=== PATIENT | male | born 1960 | race Caucasian/White ===

== ENCOUNTER → 2017-03-18 | Outpatient (CLI) | payer BC ==
[~2017-03-18] MED LIST: ANUSOL-HC CREAM30 GM RECTAL; ATIVAN0.5 MG ORAL; DORYX200 MG PO; FISH OIL500 MG PO; FLAX OIL1000 MG PO; FLAX SEED OIL1000 MG PO; FLOVENT2 PUFF2 INH; IBUPROFEN200 M2 ORAL; IRON325 M1 PO; IRON325 M2 PO; MAGNESIUM500 MG PO; MULTIVITAMINS1 EAC2 ORAL; VITAMIN B COMP1 EAC5 PO; VITAMIN C500 M1 ORAL; VITAMIN D250000 UNI1 ORAL; ZINC CHELATED50 MG ORAL
--- NOTE | 2017-03-18 12:44 | GI Progress Note ---
Assessment/Plan Problems: (1) Eosinophilic esophagitis ICD Codes: K20.0 - Eosinophilic esophagitis SNOMED: 353135884 (2) Elevated LFTs ICD Codes: R79.89 - Elevated LFTs SNOMED: 716461166 (3) Internal hemorrhoids ICD Codes: K64.8 - Internal hemorrhoids SNOMED: 69716560 (4) Iron deficiency anemia ICD Codes: D50.9 - Iron deficiency anemia SNOMED: 48581345 Status: stable Status Narrative Seen with Dr. Troncoso. Assessment/Plan No autoimmune hepatitis noted based on labs reviewed with Dr. Troncoso in 2013. ordered ceruloplasmin level to rule out Elvin's Disease ordered SMA, MAGALIE ordered abdominal U/S dc motrin/advil RTC x 1 month Subjective Subjective cough >> abx given red spots in the extremities here for abnormal LFTs hemorrhoid banding done fatigue Objective BP 144/92 P 58 General Appearance: no apparent distress, alert Cardiovascular: normal rate Respiratory/Chest: normal breath sounds, no respiratory distress Abdominal Exam: normal bowel sounds, non tender, soft Extremities: normal range of motion Genia Hamilton N.P. March 18, 2017 12:44
[2017-03-18 14:45] VITALS: BP 144/92
== END | disposition home or self-care (01) ==
LOC: PAN 10:50
DX: K20.0 Eosinophilic esophagitis (principal); R79.89 Other specified abnormal findings of blood chemistry; K64.8 Other hemorrhoids; D50.9 Iron deficiency anemia, unspecified
CPT/HCPCS: 99211

== ENCOUNTER → 2020-09-07 | Day surgery (SDC) | payer OTHER ==
[~2020-09-07] VITALS: Ht 180.3 cm; Wt 83.0 kg
[2020-09-07] VITALS (9 sets, daily range): BP systolic 124–153; BP diastolic 56–83
[~2020-09-07] MED LIST changes: +AMLODIPINE BESY10 MG ORAL; +ATIVAN1 MG ORAL; +LR 1000ml 1,000 ML IVLG SCH; +LR 1000ml ONE; +Midazolam 2mg/2ml Inj ONE; +SUTENT37.5 MG PO; +fentaNYL 100 mcg/2 mL IV ONE; +fentaNYL 100 mcg/2 mL IV PRN
--- NOTE | 2020-09-07 10:25 | Anethesia Preoperative Eval ---
Anesthesia Pre-op PMH/ROS General Date of Evaluation: Sep 07, 2020 Time of Evaluation: 10:22 Anesthesiologist: Helder ASA Score: ASA 2 Mallampati Score Class I : Soft palate, uvula, fauces, pillars visible Class II: Soft palate, uvula, fauces visible Class III: Soft palate, base of uvula visible Class IV: Only hard plate visible Mallampati Classification: Class II Surgeon: Cynthia Diagnosis: ABdominal pain Surgical Procedure: EGD Colonoscopy Anesthesia History: none Family History: no anesthesia problems Allergies: Coded Allergies: CODEINE (Verified Allergy, Intermediate, Rash, 08/26/14) swollen, vomiting Uncoded Allergies: hay fever (Adverse Reaction, Mild, 07/26/14) Medications: see eMAR Patient NPO?: Yes Past Medical History Cardiovascular: Denies: HTN, CAD, ID, valve dz, arrhythmia, other Pulmonary: Denies: asthma, COPD, CARLIE, other Gastrointestinal/Genitourinary: Reports: GERD, other - colitis; Denies: CRI, ESRD Neurologic/Psychiatric: Denies: dementia, CVA, depression/anxiety, TIA, other Endocrine: Denies: DM, hypothyroidism, steroids, other HEENT: Denies: cataract (L), cataract (R), glaucoma, [place]OP[place] (L), [place] (R), other Hematology/Immune: Reports: anemia - mild; Denies: DVT, bleeding disorder, other Musculoskeletal/Integumentary: Denies: OA, RA, DJD, DDD, edema, other PMH Narrative: as above PSxH Narrative: see H&P Anesthesia Pre-op Phys. Exam Physician Exam Last Vital Signs Date Time Temp Pulse Resp B/P (MAP) Pulse Ox O2 Delivery O2 Flow Rate FiO2 09/07/20 10:14 97.9 60 18 143/81 99 Room Air Constitutional: NAD Neurologic: CN 2-12 intact Cardiovascular: RRR, no M/R/G Respiratory: CTA Gastrointestinal: S/NT/ND Airway Exam Mallampati Score: Class II MO: full Neck: flexible ROM: full Teeth: intact Dentures: no upper, no lower Anesthesia Pre-op A/P Labs see chart Risk Assessment & Plan Assessment: ASA 2 Plan: MAC Status Change Before Surgery: No Adam Pendleton MD Sep 07, 2020 10:25
--- NOTE | 2020-09-07 10:50 | Pre-Procedure Note/Attestation ---
Pre-Procedure Note/Attestation Complete Prior to Procedure Planned Procedure: not applicable Procedure Narrative: esophagogastroduodenoscopy colon Indications for Procedure Pre-Operative Diagnosis: nausea, anemia, hematochezia Attestation I attest that I discussed the nature of the procedure; its benefits; risks and complications; and alternatives (and the risks and benefits of such alte rnatives), prior to the procedure, with the patient (or the patient's legal signs sales representative). I attest that, if there was a reasonable possibility of needing a blood transfusion, the patient (or the patient's legal signs sales representative) was given the [facility] standardized written summary, pursuant to the Gael Riley Blood Safety Act ([place] Health and Safety Code # 1645, as amended). I attest that I re-evaluated the patient just prior to the surgery and that there has been no change in the patient's H&P, except as documented below: Jeremie Forbes MD Sep 07, 2020 10:49
--- NOTE | 2020-09-07 10:50 | Short Stay Surgery H&P ---
History of Present Illness History of Present Illness Chief Complaint see H&P HPI Adarsh Chandra is a 60 year old male who was admitted on for Blood In Stool Patient History Allergies: Coded Allergies: CODEINE (Verified Allergy, Intermediate, Rash, 08/26/14) swollen, vomiting Uncoded Allergies: hay fever (Adverse Reaction, Mild, 07/26/14) Medication History Scheduled Amlodipine Besylate* (Amlodipine Besylate*), 10 MG ORAL DAILY, (Reported) Ferrous Sulfate (Iron), 325 MG PO DAILY, (Reported) Lorazepam* (Ativan*), 1 MG ORAL BEDTIME, (Reported) Sunitinib Malate (Sutent), 37.5 MG PO DAILY, (Reported) Discontinued Medications Ferrous Sulfate (Iron), Unknown Dose PO, (Reported) Discontinued Reason: Pt stopped taking med Flaxseed Oil (Flax Seed Oil), Unknown Dose PO, (Reported) Discontinued Reason: Pt stopped taking med Fluticasone Propionate (Flovent Hfa), 1 PUFFS INH DAILY, (Reported) Discontinued Reason: Pt stopped taking med Everly-3 Fatty Acids (Fish Oil), 500 MG PO DAILY, (Reported) Discontinued Reason: Pt stopped taking med Zinc (Zinc Chelated), Unknown Dose ORAL, (Reported) Discontinued Reason: Pt stopped taking med Physical Exam Vital Signs Last Vital Signs Date Time Temp Pulse Resp B/P (MAP) Pulse Ox O2 Delivery O2 Flow Rate FiO2 09/07/20 10:14 97.9 60 18 143/81 99 Room Air Plan Attestation Are the patient's medical conditions optimized for surgery? Jeremie Forbes MD Sep 07, 2020 10:50
--- NOTE | 2020-09-07 11:25 | Endoscopy Procedure Note ---
Endoscopy Procedure Note General Indication for Procedure: nausea, anemia, BRBPR Procedures Performed: EGD, colonoscopy Operative Findings/Diagnosis: esophageal mucosal contractions, Int/Ext rhoids Specimen: yes Pt Tolerated Procedure Well: Yes Estimated Blood Loss: none Anesthesia Anesthesiologist: Chan Anesthesia: MAC Medications Medication Given: see anesthesia record Inserted Devices Implant(s) used?: No GI Core Measures 50 yrs or older w/o bx or poly: Yes 10yrs. F/U recommended: Yes If not recommended, why?: 18 years or older w/prev. colo: Yes <3yrs. since last colonoscopy: No Med reason:<3 yrs.: System Reason:<3 yrs.: Last colonoscopy >= to 3yrs: Yes Jeremie Forbes MD Sep 07, 2020 11:25
--- NOTE | 2020-09-07 11:29 | Immediate Post-Op Evaluation ---
Immediate Post-Op Evalulation Immediate Post-Op Evalulation Procedure: EGD Colonoscopy Date of Evaluation: Sep 07, 2020 Time of Evaluation: 11:28 IV Fluids: 600 Blood Products: none Estimated Blood Loss: none Urinary Output: none Blood Pressure Systolic: 132 Blood Pressure Diastolic: 76 Pulse Rate: 58 Respiratory Rate: 18 O2 Sat by Pulse Oximetry: 98 Temperature (Fahrenheit): 97.5 Pain Score (1-10): 1 Nausea: No Vomiting: No Complications none Patient Status: awake, patent, none Hydration Status: adequate Adam Pendleton MD Sep 07, 2020 11:29
--- NOTE | 2020-09-07 12:40 | 48 Hour Post Anesthesia Eval ---
Post Anesthesia Evaluation Procedure: EGD Colonoscopy Date of Evaluation: Sep 07, 2020 Time of Evaluation: 12:39 Blood Pressure Systolic: 128 0: 56 Pulse Rate: 72 Respiratory Rate: 18 Temperature (Fahrenheit): 97.6 O2 Sat by Pulse Oximetry: 98 Airway: patent Nausea: No Vomiting: No Pain Intensity: 1 Hydration Status: adequate Cardiopulmonary Status: stable Mental Status/LOC: patient returned to baseline Follow-up Care/Observations: n/a Post-Anesthesia Complications: none Follow-up care needed: ready to discharge Adam Pendleton MD Sep 07, 2020 12:40
--- NOTE | 2020-09-07 13:15 | Operative Note - Dictated ---
DATE OF OPERATION: 09/07/2020 GASTROENTEROLOGY PROCEDURE REPORT PROCEDURE: Upper gastrointestinal endoscopy with biopsy as well as colonoscopy. SURGEON: Jeremie Forbes MD. ANESTHESIA: Please see the separate anesthesiologist notes for details. PRE-ENDOSCOPIC DIAGNOSES: 1. Anemia. 2. Nausea. 3. Hematochezia. POST-ENDOSCOPIC DIAGNOSES: 1. Esophageal mucosal contraction consisted with eosinophilic esophagitis, status post random biopsies of the mid esophagus. 2. Status post random biopsies of the normal antrum. 3. Normal terminal ileum for about 5 cm. 4. Moderate internal and external hemorrhoids. DESCRIPTION OF PROCEDURE: The procedure, its risks, indications, alternatives, and possible complications were explained to the patient and an informed consent was obtained. The patient was then sedated in the left lateral decubitus position. A diagnostic upper endoscope was introduced through oropharynx and advanced to the duodenum. The endoscope was then gradually withdrawn. The mucosa examined carefully. Thereafter, a rectal exam was done. The colonoscope was introduced in the rectum and advanced to the terminal ileum. The colonoscope was then gradually withdrawn and the mucosa examined carefully. The examination of the upper and the lower gastrointestinal mucosa revealed the findings as listed above. The patient was left to recovery in good condition. COMPLICATIONS: None. RECOMMENDATIONS: 1. Follow up biopsy results. 2. Long-term bowel regimen. 3. Proctology referral for hemorrhoidal banding. Thank you for asking me to participate in the care of this patient. Jeremie Forbes M.D. DR: ROB JOB#: [id number] CC: Ranulfo Larkin MD.; Fax#: [phone] [facility]
== END | disposition home or self-care (01) ==
LOC: GAS 09:49
DX: D64.9 Anemia, unspecified (principal); R11.0 Nausea; K92.1 Melena; K64.8 Other hemorrhoids; K64.4 Residual hemorrhoidal skin tags; K29.50 Unspecified chronic gastritis without bleeding; Z88.6 Allergy status to analgesic agent; Z79.899 Other long term (current) drug therapy; I10 Essential (primary) hypertension; K20.0 Eosinophilic esophagitis; K21.00 Gastro-esophageal reflux disease with esophagitis, without bleeding
CPT/HCPCS: 43239; 45378; 94003; J2250; J2704; J3010; J7120; U0002; 94150